=== PATIENT | female | born 1940 | race Caucasian/White ===

== ENCOUNTER → 2018-07-06 11:27 | Outpatient (CLI) | payer MEDICARE, SELFPAY ==
[2018-07-06 12:13] LABS: Hemoglobin A1C% w Est Avg Glu 7.3 % (4.0-6.0)
[2018-07-06 12:15] LABS: BUN Creatinine Ratio 31.4 (6-22); Blood Urea Nitrogen 22 mg/dL (7-17); Carbon Dioxide 26 mmol/L (22-32); Chloride 100 mmol/L (98-107); Estimated Glomerular Filt Rate > 60.0 mL/min (>60); Glucose 178 mg/dL (80-110); HEMOLYSIS < 15 (0-50); Potassium 4.4 mmol/L (3.4-5.1); Sodium 137 mmol/L (137-145)
[2018-07-06 13:02] LABS: Vitamin D 25 Hydroxy (D3) 22.2 ng/mL (30.0-100.0)
[2018-07-06 15:24] LABS: Creatinine Urine Random 119.4 mg/dL
[2018-07-06 15:28] LABS: Microalbumi Creatinin Ratio Ur 50.2 ug/mg CR (<30)
== END ==
PROVIDERS: PCP Student in an Organized Health Care Education/Training Program; Visit Provider Student in an Organized Health Care Education/Training Program
DX: E11.9 Type 2 diabetes mellitus without complications (principal); I10 Essential (primary) hypertension; E55.9 Vitamin D deficiency, unspecified
CPT/HCPCS: 80048; 82043; 82306; 82570; 83036

== ENCOUNTER → 2018-07-29 09:06 | Outpatient (CLI) | payer MEDICARE, SELFPAY ==
[2018-08-02 12:16] LABS: Lipoprotein (a) 172 nmol/L (<75)
== END ==
PROVIDERS: Family Provider Student in an Organized Health Care Education/Training Program; PCP Student in an Organized Health Care Education/Training Program; Visit Provider Internal Medicine
DX: I25.10 Atherosclerotic heart disease of native coronary artery without angina pectoris (principal); I25.119 Atherosclerotic heart disease of native coronary artery with unspecified angina pectoris
CPT/HCPCS: 36415; 83695

== ENCOUNTER → 2018-12-08 09:48 | Outpatient (CLI) | payer MEDICARE, SELFPAY ==
[2018-12-08 11:02] LABS: Hemoglobin A1C% w Est Avg Glu 7.5 % (4.0-6.0)
[2018-12-10 13:35] LABS: Add Manual Diff / Slide Review NO; Basophils Absolute Auto 100 /uL (0-100); Basophils Percent Auto 0.9 % (0-2); Eosinophils Absolute Auto 200 /uL (0-450); Eosinophils Percent Auto 3.4 % (2-4); Hematocrit 42.4 % (36-46); Hemoglobin 13.9 g/dL (12.0-16.0); Lymphocytes Absolute Auto 1700 /uL (1100-4500); Lymphocytes Percent Auto 29.9 % (25-40); Mean Corpuscular HGB Conc 32.9 % (30-36); Mean Corpuscular Hemoglobin 30.7 PG (26-34); Mean Corpuscular Volume 93.3 fL (80-100); Monocytes Absolute Auto 400 /uL (0-900); Monocytes Percent Auto 6.6 % (3-14); Neutrophils Absolute Auto 3400 /uL (1500-7000); Neutrophils Percent Auto 59.2 % (50-75); Platelet Count 256 X10^3/uL (150-400); Red Blood Cell Count 4.54 X10^6/uL (4.0-5.2); Red Cell Distribution Width 13.7 % (11.6-14.8); White Blood Cell Count 5.7 X10^3/uL (4.5-11.0)
[2018-12-10 13:39] LABS: Alanine Aminotransferase 22 IU/L (9-52); Albumin Globulin Ratio 1.4 (1.0-2.8); Alkaline Phosphatase 81 U/L (38-126); Aspartate Aminotransferase 17 IU/L (14-36); BUN Creatinine Ratio 31.4 (6-22); Blood Urea Nitrogen 22 mg/dL (7-17); Calcium 10.9 mg/dL (8.4-10.2); Carbon Dioxide 27 mmol/L (22-32); Chloride 99 mmol/L (98-107); Cholesterol 171 mg/dL (140-199); Estimated Glomerular Filt Rate > 60.0 mL/min (>60); Globulin 2.9 g/dL (1.7-4.1); Glucose 191 mg/dL (80-110); HDL Cholesterol 44 mg/dL (40-60); HEMOLYSIS < 15 (0-50); LDL Cholesterol Calculated 93 mg/dL (<100); Potassium 4.5 mmol/L (3.4-5.1); Sodium 138 mmol/L (137-145); Total Protein 6.9 g/dL (6.3-8.2); Triglycerides 168 mg/dL (35-150)
== END ==
PROVIDERS: Family Provider Student in an Organized Health Care Education/Training Program; PCP Student in an Organized Health Care Education/Training Program; Visit Provider Internal Medicine
DX: E78.5 Hyperlipidemia, unspecified (principal); I25.10 Atherosclerotic heart disease of native coronary artery without angina pectoris; E11.9 Type 2 diabetes mellitus without complications
CPT/HCPCS: 36415; 80053; 80061; 83036; 85025

== ENCOUNTER → 2019-05-20 09:41 | Outpatient (CLI) | payer MEDICARE, SELFPAY ==
[2019-05-20 10:49] LABS: Alanine Aminotransferase 16 IU/L (<35); Albumin 4.3 g/dL (3.5-5.0); Albumin Globulin Ratio 1.4 (1.0-2.8); Alkaline Phosphatase 96 U/L (38-126); Aspartate Aminotransferase 22 IU/L (14-36); Bilirubin Total 0.9 mg/dL (0.2-1.3); Bilirubin Unconjugated 0.8 mg/dL (0.0-1.1); Cholesterol 196 mg/dL (140-199); Globulin 3.1 g/dL (1.7-4.1); HDL Cholesterol 52 mg/dL (40-60); HEMOLYSIS < 15 (0-50); LDL Cholesterol Calculated 118 mg/dL (<100); Total Protein 7.4 g/dL (6.3-8.2); Triglycerides 128 mg/dL (35-150)
== END ==
PROVIDERS: PCP Student in an Organized Health Care Education/Training Program; Visit Provider Internal Medicine
DX: E78.5 Hyperlipidemia, unspecified (principal)
CPT/HCPCS: 36415; 80061; 80076

== ENCOUNTER → 2019-05-20 11:34 | Outpatient (CLI) | payer MEDICARE, SELFPAY ==
[2019-05-20 13:56] LABS: BUN Creatinine Ratio 33.3 (6-22); Blood Urea Nitrogen 20 mg/dL (7-17); Calcium 10.4 mg/dL (8.4-10.2); Carbon Dioxide 23 mmol/L (22-32); Chloride 102 mmol/L (98-107); Estimated Glomerular Filt Rate > 60.0 mL/min (>60); Glucose 128 mg/dL (80-110); HEMOLYSIS < 15 (0-50); Potassium 4.4 mmol/L (3.4-5.1); Sodium 138 mmol/L (137-145)
[2019-05-20 15:27] LABS: Creatinine Urine Random 176.9 mg/dL
[2019-05-20 15:31] LABS: Microalbumi Creatinin Ratio Ur 42.3 ug/mg CR (<30); Microalbumin Urine Random 7.5 mg/dL (0-1.6)
[2019-05-20 15:39] LABS: Vitamin D 25 Hydroxy (D3) 17.2 ng/mL (30.0-100.0)
== END ==
PROVIDERS: PCP Student in an Organized Health Care Education/Training Program; Visit Provider Student in an Organized Health Care Education/Training Program
DX: E11.21 Type 2 diabetes mellitus with diabetic nephropathy (principal); E55.9 Vitamin D deficiency, unspecified; E78.5 Hyperlipidemia, unspecified; I10 Essential (primary) hypertension; Z79.1 Long term (current) use of non-steroidal anti-inflammatories (NSAID)
CPT/HCPCS: 36415; 80048; 80061; 80076; 82043; 82306; 82570; 83036

== ENCOUNTER → 2020-02-01 13:52 | Outpatient (CLI) | payer MEDICARE, SELFPAY ==
[2020-02-01 14:21] LABS: Hemoglobin A1C% w Est Avg Glu 6.6 % (4.0-6.0)
[2020-02-01 15:00] LABS: BUN Creatinine Ratio 27.2 (6-22); Blood Urea Nitrogen 22 mg/dL (7-17); Calcium 10.6 mg/dL (8.4-10.2); Carbon Dioxide 27 mmol/L (22-32); Chloride 104 mmol/L (98-107); Estimated Glomerular Filt Rate > 60.0 mL/min (>60); Glucose 147 mg/dL (80-110); HEMOLYSIS < 15 (0-50); Potassium 4.4 mmol/L (3.4-5.1); Sodium 141 mmol/L (137-145)
[2020-02-01 15:58] LABS: Vitamin D 25 Hydroxy (D3) 38.8 ng/mL (30.0-100.0)
[2020-02-02 07:09] LABS: Parathyroid Hormone Int 74 pg/mL (15-65)
== END ==
PROVIDERS: PCP Student in an Organized Health Care Education/Training Program; Referring Provider Student in an Organized Health Care Education/Training Program; Visit Provider Student in an Organized Health Care Education/Training Program
DX: E11.21 Type 2 diabetes mellitus with diabetic nephropathy (principal); E55.9 Vitamin D deficiency, unspecified; I10 Essential (primary) hypertension
CPT/HCPCS: 36415; 80048; 82306; 83036; 83970

== ENCOUNTER → 2020-06-22 12:50 | Outpatient (CLI) | payer MEDICARE, SELFPAY ==
[2020-06-22 14:17] LABS: BUN Creatinine Ratio 37.1 (6-22); Blood Urea Nitrogen 23 mg/dL (7-17); Estimated Glomerular Filt Rate > 60.0 mL/min (>60)
[2020-06-22 14:33] LABS: Hemoglobin A1C% w Est Avg Glu 7.3 % (4.0-6.0)
[2020-06-23 08:28] LABS: Calcium 7.8 mg/dL (8.7-10.3); Parathyroid Hormone, Intact 68 pg/mL (15-65)
== END ==
PROVIDERS: PCP Student in an Organized Health Care Education/Training Program; Referring Provider Student in an Organized Health Care Education/Training Program; Visit Provider Student in an Organized Health Care Education/Training Program
DX: E11.21 Type 2 diabetes mellitus with diabetic nephropathy (principal); E21.3 Hyperparathyroidism, unspecified; I10 Essential (primary) hypertension
CPT/HCPCS: 36415; 82310; 82565; 83036; 83970; 84520

== ENCOUNTER → 2021-01-04 13:37 | Outpatient (CLI) | payer MEDICARE, SELFPAY ==
[2021-01-04 14:36] LABS: Alanine Aminotransferase 14 IU/L (<35); Albumin 4.3 g/dL (3.5-5.0); Albumin Globulin Ratio 1.4 (1.0-2.8); Alkaline Phosphatase 102 U/L (38-126); Aspartate Aminotransferase 20 IU/L (14-36); Bilirubin Total 1.1 mg/dL (0.2-1.3); Blood Urea Nitrogen 13 mg/dL (7-17); Carbon Dioxide 26 mmol/L (22-32); Chloride 101 mmol/L (98-107); Cholesterol 158 mg/dL (140-199); Estimated Glomerular Filt Rate > 60.0 mL/min (>60); Globulin 3.1 g/dL (1.7-4.1); Glucose 148 mg/dL (80-110); HDL Cholesterol 44 mg/dL (40-60); HEMOLYSIS < 15 (0-50); Hemoglobin A1C% w Est Avg Glu 7.1 % (4.0-6.0); LDL Cholesterol Calculated 88 mg/dL (<100); Potassium 4.1 mmol/L (3.4-5.1); Sodium 136 mmol/L (137-145); Total Protein 7.4 g/dL (6.3-8.2); Triglycerides 128 mg/dL (35-150)
[2021-01-04 15:49] LABS: Creatinine Urine Random 148.1 mg/dL
[2021-01-04 16:11] LABS: Vitamin D 25 Hydroxy (D3) 17.1 ng/mL (30.0-100.0)
[2021-01-04 16:15] LABS: Microalbumi Creatinin Ratio Ur 367.3 ug/mg CR (<30); Microalbumin Urine Random 54.4 mg/dL (0-1.6)
== END ==
PROVIDERS: PCP Student in an Organized Health Care Education/Training Program; Referring Provider Internal Medicine; Visit Provider Internal Medicine
DX: E55.9 Vitamin D deficiency, unspecified (principal); E11.9 Type 2 diabetes mellitus without complications; E78.5 Hyperlipidemia, unspecified; I10 Essential (primary) hypertension
CPT/HCPCS: 36415; 80053; 80061; 82043; 82306; 82570; 83036

== ENCOUNTER → 2021-06-03 10:14 | Outpatient (CLI) | payer MEDICARE, SELFPAY ==
[2021-06-03 10:55] LABS: BUN Creatinine Ratio 23.7 (6-22); Blood Urea Nitrogen 18 mg/dL (7-17); Calcium 9.9 mg/dL (8.4-10.2); Carbon Dioxide 25 mmol/L (22-32); Chloride 103 mmol/L (98-107); Estimated Glomerular Filt Rate > 60.0 mL/min (>60); Glucose 255 mg/dL (80-110); HEMOLYSIS < 15 (0-50); Potassium 4.5 mmol/L (3.4-5.1); Sodium 137 mmol/L (137-145)
== END ==
PROVIDERS: PCP Student in an Organized Health Care Education/Training Program; Referring Provider Internal Medicine; Visit Provider Internal Medicine
DX: R06.00 Dyspnea, unspecified (principal)
CPT/HCPCS: 36415; 80048

== ENCOUNTER → 2021-07-31 09:03 | Outpatient (CLI) | payer MEDICARE, SELFPAY ==
[2021-07-31 10:28] LABS: Add Manual Diff / Slide Review NO; Basophils Absolute Auto 0 /uL (0-100); Basophils Percent Auto 0.5 % (0-2); Eosinophils Absolute Auto 200 /uL (0-450); Eosinophils Percent Auto 2.7 % (2-4); Hematocrit 43.4 % (36-46); Hemoglobin 14.7 g/dL (12.0-16.0); Lymphocytes Absolute Auto 1700 /uL (1100-4500); Lymphocytes Percent Auto 22.7 % (25-40); Mean Corpuscular HGB Conc 33.9 % (30-36); Mean Corpuscular Hemoglobin 31.2 PG (26-34); Mean Corpuscular Volume 91.9 fL (80-100); Monocytes Absolute Auto 600 /uL (0-900); Monocytes Percent Auto 7.9 % (3-14); Neutrophils Absolute Auto 5000 /uL (1500-7000); Neutrophils Percent Auto 66.2 % (50-75); Platelet Count 246 X10^3/uL (150-400); Red Blood Cell Count 4.72 X10^6/uL (4.0-5.2); Red Cell Distribution Width 13.3 % (11.6-14.8); White Blood Cell Count 7.6 X10^3/uL (4.5-11.0)
[2021-07-31 10:33] LABS: Hemoglobin A1C% w Est Avg Glu 7.8 % (4.0-6.0)
[2021-07-31 10:41] LABS: BUN Creatinine Ratio 21.3 (6-22); Blood Urea Nitrogen 17 mg/dL (7-17); Carbon Dioxide 29 mmol/L (22-32); Chloride 99 mmol/L (98-107); Estimated Glomerular Filt Rate > 60.0 mL/min (>60); Glucose 166 mg/dL (80-110); HEMOLYSIS < 15 (0-50); Potassium 4.2 mmol/L (3.4-5.1); Sodium 139 mmol/L (137-145)
[2021-07-31 11:26] LABS: Creatinine Urine Random 145.3 mg/dL
[2021-07-31 11:49] LABS: Microalbumi Creatinin Ratio Ur 271.1 ug/mg CR (<30); Microalbumin Urine Random 39.4 mg/dL (0-1.6)
== END ==
PROVIDERS: PCP Student in an Organized Health Care Education/Training Program; Referring Provider Internal Medicine; Visit Provider Internal Medicine
DX: E11.42 Type 2 diabetes mellitus with diabetic polyneuropathy (principal); E55.9 Vitamin D deficiency, unspecified; I25.118 Atherosclerotic heart disease of native coronary artery with other forms of angina pectoris; E11.69 Type 2 diabetes mellitus with other specified complication; E78.5 Hyperlipidemia, unspecified; I10 Essential (primary) hypertension; E11.21 Type 2 diabetes mellitus with diabetic nephropathy
CPT/HCPCS: 36415; 80048; 82043; 82306; 82570; 83036; 85025

== ENCOUNTER 2021-08-27 13:41 | Emergency (ER) | payer MEDICARE, SELFPAY ==
[2021-08-27] VITALS (17 sets, daily range): BP systolic 110–161; BP diastolic 55–76; PULSE 60–77; RESP 14; TEMP 36.7; O2SAT 93–96; BMI 32.4
--- NOTE | 2021-08-27 14:41 | DI.RAD.S_ITS ---
PROCEDURE: XR KNEE LT 1TO2V INDICATIONS: knee pain TECHNIQUE: 2 views of the knee were acquired. COMPARISON: [facility], CR, XR KNEE ARTHRITIC SERIES RT, 07/17/2017, 10:48. [facility], JONNATHAN, KNEE 1 VIEW BILATERAL, 04/02/2012, 12:41. FINDINGS: Bones: No acute fractures or dislocations. No suspicious bony lesions. Tricompartmental degenerative changes are seen with marginal osteophyte formation, most severe in the anterior compartment. Soft tissues: Moderate joint effusion. No suspicious soft tissue calcifications. IMPRESSION: No acute osseous abnormality. Moderate joint effusion. Tricompartmental osteoarthrosis. If clinical suspicion and/or symptoms persist, additional imaging with repeat plain films, or advanced imaging (e.g. CT, MRI) may be helpful for further assessment. Dictated by: Nael Andersen M.D. on 08/27/2021 at 15:08 Approved by: Nael Andersen M.D. on 08/27/2021 at 15:11
--- NOTE | 2021-08-27 14:41 | DI.RAD.S_ITS ---
PROCEDURE: XR CHEST 1V INDICATIONS: fall TECHNIQUE: One view of the chest was acquired. COMPARISON: [facility], , CHEST 2 VIEW, 07/22/2012, 10:53. FINDINGS: Surgical changes and devices: Sternotomy wires and mediastinal clips are noted. Lungs and pleura: Lungs are clear. No pleural effusions or pneumothorax. Mediastinum: Mediastinal contours appear normal. Heart size is enlarged, stable. Bones and chest wall: No acute displaced rib fracture is seen. No suspicious bony lesions. Overlying soft tissues appear unremarkable. IMPRESSION: No pneumothorax. No acute cardiopulmonary abnormality. Dictated by: Nael Andersen M.D. on 08/27/2021 at 15:04 Approved by: Nael Andersen M.D. on 08/27/2021 at 15:08
--- NOTE | 2021-08-27 14:48 | ED_ITS ---
HPI - Fall <Phoenix Roldan PA-C - Last Filed: 08/27/21 18:38> General Chief Complaint: Fall Stated Complaint: Fall yesterday,no thinners,having left knee pain Time Seen by Provider: 08/27/21 13:59 Source: patient and EMS Mode of arrival: EMS History of Present Illness HPI Narrative: Patient is a 81-year-old female who presents to the ED via EMS. She states that yesterday while walking to the mailbox her left knee gave out and she essentially lowered herself down to her buttocks and kind of fell backwards. She denies any loss of consciousness or any pain in her buttocks or in her head. The only complaint at that time was pain in her left knee. She has a history of arthritis in the left knee has received steroid injections in the past and states that the left knee gave out. Patient was able to crawl back into the house and up into bed and remained in bed throughout the night. About 430 in the morning she got up to go to the bathroom she was able to make it to the toilet with a cane however she was not able to get off of the toilet. She states that she did not have enough energy and was weak and could not hold herself up. As result she got on the floor and crawled to the bed however she was not able to get up onto the bed. Patient remained on the floor from 4:30 a.m. and tilt EMS was notified at 1:00 p.m.. Patient lives with spouse however spouse is not able to address patient's physical needs. No reported fever no reported cough no reported chest pain shortness of breath nausea vomiting or diarrhea. Patient does have substantial cardiac history and had a coronary artery bypass surgery x2 back in 2012. She is on multiple medications and her PCP is associated with [facility]. Related Data Home Medications Medication Instructions Recorded Confirmed ibuprofen 200 mg capsule 200 mg PO QID PRN 07/06/18 08/19/21 magnesium oxide 400 mg PO BID cap 07/13/18 08/19/21 amlodipine 10 mg tablet 10 mg PO DAILY 01/09/21 08/19/21 furosemide 40 mg tablet 40 mg PO DAILY 05/21/21 08/19/21 aspirin 81 mg tablet,delayed 162 mg PO DAILY tab 08/19/21 08/19/21 release (Adult Aspirin Regimen) isosorbide mononitrate 30 mg 30 mg PO DAILY 08/19/21 08/19/21 tablet,extended release 24 hr metoprolol succinate 200 mg 200 mg PO DAILY 08/19/21 08/19/21 tablet,extended release 24 hr pantoprazole 40 mg tablet,delayed 40 mg PO DAILY 08/19/21 08/19/21 release sacubitril 49 mg-valsartan 51 mg 1 tab PO BID 08/19/21 08/19/21 tablet (Entresto) Previous Rx's Medication Instructions Recorded [accu chek inge strip] #1 ea 05/20/19 cholecalciferol (vitamin D3) 125 125 mcg PO DAILY #90 cap 07/31/21 mcg (5,000 unit) capsule empagliflozin 25 mg tablet 25 mg PO DAILY #90 tab 07/31/21 atorvastatin 80 mg tablet 80 mg PO DAILY #90 tab 08/19/21 clobetasol 0.05 % topical cream 1 applic TOPICAL BID PRN #15 gram 08/19/21 insulin glargine 100 unit/mL (3 20 unit (0.2 mL) SUBCUT BEDTIME #6 08/19/21 mL) subcutaneous pen (Lantus ml Solostar U-100 Insulin) metformin 1,000 mg tablet 1,000 mg PO BIDCC #180 tab 08/19/21 methocarbamol 500 mg tablet 500 mg PO Q8H 7 Days #21 tab 08/27/21 Allergies Allergy/AdvReac Type Severity Reaction Status Date / Time latanoprost [From XALATAN] Allergy Intermediate made eyes Verified 08/27/21 13:54 itch spironolactone Allergy Mild Vomiting Verified 08/27/21 13:54 hydrochlorothiazide AdvReac Intermediate Hypercalcem Verified 08/27/21 13:54 ia timolol [TIMOLOL] AdvReac Mild REDNESS Verified 08/27/21 13:54 AROUND EYES Review of Systems <Phoenix Roldan PA-C - Last Filed: 08/27/21 18:38> Review of Systems ROS Unobtainable: All systems reviewed & are unremarkable except as noted in HPI and below Constitutional Constitutional: Denies chills, Denies fatigue, Denies fever(s), Denies frequent falls, Denies lethargy and Denies weakness Eyes Eyes: Denies change in vision, Denies eye discharge, Denies irritation and Denies loss of vision ENT Ears, Nose, Mouth, and Throat: Denies change in voice, Denies dizziness, Denies neck pain, Denies sore throat and Denies throat swelling Cardiovascular Cardiovascular: Denies chest pain, Denies irregular heart rhythm, Denies lightheadedness, Denies palpitations, Denies dyspnea, Denies dyspnea on exertion and Denies orthopnea Respiratory Respiratory: Denies cough, Denies dyspnea, Denies dyspnea on exertion and Denies wheezing Gastrointestinal Gastrointestinal: Denies abdominal pain, Denies change in bowel habits, Denies diarrhea, Denies nausea and Denies vomiting Genitourinary Genitourinary: Denies hematuria, Denies flank pain, Denies urinary incontinence and Denies urinary urgency Musculoskeletal Musculoskeletal: Reports arthralgias, Denies back pain, Reports arthralgias, Reports joint swelling, Denies muscle weakness, Denies neck pain, Denies numbness and Denies tingling Integumentary/Breasts Skin/Breast: Denies pruritus, Denies erythema, Denies rash and Denies wounds Neurologic Neurologic: Denies behavioral changes, Denies confusion, Denies dizziness, Denies frequent falls, Denies loss of vision, Denies numbness, Denies tingling and Denies weakness Psychiatric Psychiatric: Denies anxiety, Denies behavioral changes, Denies confusion, Denies depression, Denies homicidal ideation and Denies suicidal ideation Endocrine Endocrine: Denies fatigue, Denies flushing and Denies palpitations Hematologic/Lymphatic Hematologic/Lymphatic: Denies easy bruising Allergic/Immunologic Allergic/Immunologic: Denies urticaria, Denies throat swelling and Denies wheezing Patient History <Phoenix Roldan PA-C - Last Filed: 08/27/21 18:38> Medical History CAD (coronary artery disease) (06/2012) Cataract Diabetes type 2, controlled (03/19/11) Essential hypertension (03/19/11) Glaucoma Hyperlipidemia associated with type 2 diabetes mellitus HI (myocardial infarction) Mitral regurgitation Peripheral vascular disease Psoriasis Shingles (09/2008) Surgical History History of mitral valve repair (06/2012) Status post coronary artery bypass graft (06/2012) Status post hysterectomy (1992) Family History Other Heart disease Social History Smoking Status: Former smoker alcohol intake: current (Occasional) substance use type: does not use Smoking Status: Former smoker alcohol intake frequency: 0-2 drinks per day Substance Use Type: does not use Exam <Phoenix Roldan PA-C - Last Filed: 08/27/21 18:38> Initial Vital Signs Initial Vital Signs: Vital Signs Pulse Rate 71 08/27/21 13:45 Pulse Oximetry 95 08/27/21 13:45 Const General: cooperative, healthy appearing, comfortable and well developed Nutritional Appearance: average body habitus Orientation: Orientation [facility] Head: normal to inspection, normocephalic and atraumatic Ears: hearing grossly normal bilaterally and external ears normal Nose: external nose normal and nares normal Face and sinus: normal facial exam and sinuses nontender Mouth: oral mucosae normal Teeth and gingiva: dentition normal Eyes General: Yes appearance normal, both eyes and all related structures Pupils: PERRL Resp Effort & Inspection: normal respiratory effort and able to speak in complete sentences Auscultation: clear to auscultation bilaterally Percussion: percussion normal Cardio Palpation: normal PMI Rate: regular rate Rhythm: regular rhythm Heart Sounds: S1 normal and S2 normal GI Inspection: normal to inspection Palpation: soft and no hepatosplenomegaly Percussion: normal to percussion Auscultation: normal bowel sounds Skin General: no rashes or lesions noted Neuro General: patient alert, patient awake, patient oriented x3, moves all extremities and CN's II-XI intact bilaterally <Mayuri Guerrier DO - Last Filed: 08/28/21 03:25> Initial Vital Signs Initial Vital Signs: Vital Signs Pulse Rate 71 08/27/21 13:45 Pulse Oximetry 95 08/27/21 13:45 Course <Phoenix Roldan PA-C - Last Filed: 08/27/21 18:38> Orders Ordered: Discontinued Medications Acetaminophen (Acetaminophen 325 Mg Tablet) 975 mg PO NOW ONE Stop: 08/27/21 17:11 Last Admin: 08/27/21 17:33 Dose: 975 mg Documented by: BASHIR Methocarbamol (Methocarbamol 500 Mg Tablet) 500 mg PO NOW ONE Stop: 08/27/21 17:11 Last Admin: 08/27/21 17:34 Dose: 500 mg Documented by: BASHIR Consultations Consultation #1: Spoke with the hospitalist on duty today regarding admission. He recommended a PT consult to evaluate patient's abilities. Vital Signs Vital signs: Vital Signs - 8 hr 08/27/21 13:45 08/27/21 13:46 08/27/21 13:54 Temperature 98.1 F Pulse Rate 71 71 68 Respiratory Rate 14 Blood Pressure 160/66 H 160/66 H Pulse Oximetry 95 95 96 08/27/21 14:00 08/27/21 14:30 08/27/21 14:58 Temperature Pulse Rate 68 72 64 Respiratory Rate Blood Pressure 152/67 H 161/74 H 110/55 L Pulse Oximetry 95 96 95 08/27/21 15:00 08/27/21 15:30 08/27/21 16:00 Temperature Pulse Rate 65 60 62 Respiratory Rate Blood Pressure 116/56 L 118/59 L 123/58 L Pulse Oximetry 95 94 95 08/27/21 16:30 08/27/21 16:31 08/27/21 17:00 Temperature Pulse Rate 68 64 63 Respiratory Rate Blood Pressure 141/71 H 159/76 H Pulse Oximetry 96 95 95 08/27/21 17:30 08/27/21 17:31 08/27/21 18:00 Temperature Pulse Rate 63 65 65 Respiratory Rate Blood Pressure 113/55 L 117/58 L Pulse Oximetry 94 94 93 08/27/21 18:19 Temperature Pulse Rate 77 Respiratory Rate Blood Pressure 131/61 Pulse Oximetry 95 <Mayuri Guerrier DO - Last Filed: 08/28/21 03:25> Orders Ordered: Discontinued Medications Acetaminophen (Acetaminophen 325 Mg Tablet) 975 mg PO NOW ONE Stop: 08/27/21 17:11 Last Admin: 08/27/21 17:33 Dose: 975 mg Documented by: BASHIR Methocarbamol (Methocarbamol 500 Mg Tablet) 500 mg PO NOW ONE Stop: 08/27/21 17:11 Last Admin: 08/27/21 17:34 Dose: 500 mg Documented by: BASHIR Vital Signs Vital signs: Vital Signs - 8 hr 08/27/21 13:45 08/27/21 13:46 08/27/21 13:54 Temperature 98.1 F Pulse Rate 71 71 68 Respiratory Rate 14 Blood Pressure 160/66 H 160/66 H Pulse Oximetry 95 95 96 08/27/21 14:00 08/27/21 14:30 08/27/21 14:58 Temperature Pulse Rate 68 72 64 Respiratory Rate Blood Pressure 152/67 H 161/74 H 110/55 L Pulse Oximetry 95 96 95 08/27/21 15:00 08/27/21 15:30 08/27/21 16:00 Temperature Pulse Rate 65 60 62 Respiratory Rate Blood Pressure 116/56 L 118/59 L 123/58 L Pulse Oximetry 95 94 95 08/27/21 16:30 08/27/21 16:31 08/27/21 17:00 Temperature Pulse Rate 68 64 63 Respiratory Rate Blood Pressure 141/71 H 159/76 H Pulse Oximetry 96 95 95 08/27/21 17:30 08/27/21 17:31 08/27/21 18:00 Temperature Pulse Rate 63 65 65 Respiratory Rate Blood Pressure 113/55 L 117/58 L Pulse Oximetry 94 94 93 08/27/21 18:19 Temperature Pulse Rate 77 Respiratory Rate Blood Pressure 131/61 Pulse Oximetry 95 MDM - Fall <Phoenix Roldan PA-C - Last Filed: 08/27/21 18:38> Differential Diagnosis Differential diagnosis: Likely other Lab Data Result diagrams: 08/27/21 14:55 08/27/21 14:55 Labs: Lab Results 08/27/21 08/27/21 08/27/21 Range/Units 14:55 14:55 14:55 WBC 7.7 (4.5-11.0) X10^3/uL RBC 4.68 (4.0-5.2) X10^6/uL Hgb 14.4 (12.0-16.0) g/dL Hct 43.3 (36-46) % MCV 92.4 (80-100) fL MCH 30.8 (26-34) PG MCHC 33.3 (30-36) % RDW 13.9 (11.6-14.8) % Plt Count 229 (150-400) X10^3/uL Neut % (Auto) 77.3 H (50-75) % Lymph % (Auto) 12.3 L (25-40) % [place] % (Auto) 9.2 (3-14) % Eos % (Auto) 0.9 L (2-4) % Baso % (Auto) 0.3 (0-2) % Neut # (Auto) 6000 (0488-9762) /uL Lymph # (Auto) 1000 L (2600-0547) /uL [place] # (Auto) 700 (0-900) /uL Eos # (Auto) 100 (0-450) /uL Baso # (Auto) 0 (0-100) /uL Sodium 139 (137-145) mmol/L Potassium 4.2 (3.4-5.1) mmol/L Chloride 105 (98-107) mmol/L Carbon Dioxide 28 (22-32) mmol/L BUN 21 H (7-17) mg/dL Creatinine 0.80 (0.52-1.04) mg/dL Estimated GFR > 60 (>60) mL/min BUN/Creatinine Ratio 26.3 H (6-22) Glucose 167 H (80-110) mg/dL Calcium 9.6 (8.4-10.2) mg/dL Total Bilirubin 1.3 (0.2-1.3) mg/dL AST 23 (14-36) IU/L ALT 15 (<35) IU/L Alkaline Phosphatase 89 (38-126) U/L Total Creatine Kinase 77 (30-135) U/L CK-MB (CK-2) TNP CK-MB (CK-2) Rel Index TNP Troponin I < 0.012 (0.01-0.034) ng/mL NT-Pro-B Natriuret Pep 1620 H (<450) pg/mL Total Protein 6.8 (6.3-8.2) g/dL Albumin 4.0 (3.5-5.0) g/dL Globulin 2.8 (1.7-4.1) g/dL Albumin/Globulin Ratio 1.4 (1.0-2.8) TSH 2.28 (0.47-4.68) uIU/mL Point of Care Testing Glucose POC 160 Urine Dip Bedside Urine Glucose 1000 mg/dl Bedside Urine Bilirubin - Negative Bedside Urine Ketone - Negative Urine Specific Champion 1.020 Bedside Urine Occult Blood - Negative Bedside Urine pH 6.0 Bedside Urine Protein - Negative Bedside Urine Urobilinogen - Negative Bedside Urine Nitrite - Negative Bedside Urine Leukocytes - Negative Esterase Imaging Data Chest x-ray: Radiologist's Impression: [address] [id number] ReportSigned Patient: Faina Pearce AMR#: [id number]: 1940cct:[id number]/Sex: 81 / FDate of Service: 08/27/21Loc: EDAccession Number: [id number]? ? Procedure: XR chest 1V Ordering Provider: Phoenix Roldan P.A-C PROCEDURE:? XR CHEST 1V ? INDICATIONS:? fall ? TECHNIQUE:? One view of the chest was acquired.? ? COMPARISON:? [facility] , CHEST 2 VIEW, 07/22/2012, 10:53. ? FINDINGS:? ? Surgical changes and devices:? Sternotomy wires and mediastinal clips are noted. ? Lungs and pleura:? Lungs are clear.? No pleural effusions or pneumothorax.? ? Mediastinum:? Mediastinal contours appear normal.? Heart size is enlarged, stable.? ? Bones and chest wall:? No acute displaced rib fracture is seen.? No suspicious bony lesions.? Overlying soft tissues appear unremarkable.? ? IMPRESSION:? No pneumothorax.? No acute cardiopulmonary abnormality.? ? Dictated by: Nael Andersen M.D. on 08/27/2021 at 15:04? ?? Approved by: Nael Andersen M.D. on 08/27/2021 at 15:08?? Extremity x-ray #1: Radiologist's Impression: [address] [id number] XRay Report Signed Patient: Faina Pearce MR#: [id number] : 1940 Acct:[id number] Age/Sex: 81 / F Date of Service: 08/27/21 Loc: ED Accession Number: [id number] ?? Procedure: XR knee LT 1to2V Ordering Provider: Phoenix Roldan P.A-C PROCEDURE:? XR KNEE LT 1TO2V ? INDICATIONS:? knee pain ? TECHNIQUE:? 2 views of the knee were acquired.? ? COMPARISON:? [facility] JONNATHAN Hathaway, XR KNEE ARTHRITIC SERIES RT, 07/17/2017, 10:48.? [facility], CR, KNEE 1 VIEW BILATERAL, 04/02/2012, 12:41. ? FINDINGS:? ? Bones:? No acute fractures or dislocations.? No suspicious bony lesions.? Tricompartmental degenerative changes are seen with marginal osteophyte formation, most severe in the anterior compartment. ? Soft tissues:? Moderate joint effusion.? No suspicious soft tissue calcifications.? ? ? IMPRESSION:? No acute osseous abnormality.? Moderate joint effusion.? Trico mpartmental osteoarthrosis.? If clinical suspicion and/or symptoms persist, additional imaging with repeat plain films, or advanced imaging (e.g. CT, MRI) may be helpful for further assessment. ? ? Dictated by: Nael Andersen M.D. on 08/27/2021 at 15:08 ? ? Approved by: Nael Andersen M.D. on 08/27/2021 at 15:11?? MDM Narrative Medical decision making narrative: Patient was evaluated today for weakness and falls. Patient was brought in by EMS because she was unable to get up from the floor. She laid on the floor for approximately 10 hours prior to calling EMS. She reports the day prior where she was walking out to get the mail and her left knee gave out and she had to crawl into the house. She denies any pain or discomfort however she is complaining of increased weakness. Patient had x-rays which did not show any evidence of any fractures blood work did show elevation in her BNP. I spoke with the hospitalist on duty he evaluated the patient himself and determined that the patient was okay to be sent home. At his recommendation I will discharge the patient home and I advised her to follow up with her regular doctor. She was agreeable family was agreeable and patient was discharged home. <Mayuri Guerrier, DO - Last Filed: 08/28/21 03:25> Lab Data Labs: Lab Results 08/27/21 08/27/21 08/27/21 Range/Units 14:55 14:55 14:55 WBC 7.7 (4.5-11.0) X10^3/uL RBC 4.68 (4.0-5.2) X10^6/uL Hgb 14.4 (12.0-16.0) g/dL Hct 43.3 (36-46) % MCV 92.4 (80-100) fL MCH 30.8 (26-34) PG MCHC 33.3 (30-36) % RDW 13.9 (11.6-14.8) % Plt Count 229 (150-400) X10^3/uL Neut % (Auto) 77.3 H (50-75) % Lymph % (Auto) 12.3 L (25-40) % [place] % (Auto) 9.2 (3-14) % Eos % (Auto) 0.9 L (2-4) % Baso % (Auto) 0.3 (0-2) % Neut # (Auto) 6000 (5231-3207) /uL Lymph # (Auto) 1000 L (8826-2681) /uL [place] # (Auto) 700 (0-900) /uL Eos # (Auto) 100 (0-450) /uL Baso # (Auto) 0 (0-100) /uL Sodium 139 (137-145) mmol/L Potassium 4.2 (3.4-5.1) mmol/L Chloride 105 (98-107) mmol/L Carbon Dioxide 28 (22-32) mmol/L BUN 21 H (7-17) mg/dL Creatinine 0.80 (0.52-1.04) mg/dL Estimated GFR > 60 (>60) mL/min BUN/Creatinine Ratio 26.3 H (6-22) Glucose 167 H (80-110) mg/dL Calcium 9.6 (8.4-10.2) mg/dL Total Bilirubin 1.3 (0.2-1.3) mg/dL AST 23 (14-36) IU/L ALT 15 (<35) IU/L Alkaline Phosphatase 89 (38-126) U/L Total Creatine Kinase 77 (30-135) U/L CK-MB (CK-2) TNP CK-MB (CK-2) Rel Index TNP Troponin I < 0.012 (0.01-0.034) ng/mL NT-Pro-B Natriuret Pep 1620 H (<450) pg/mL Total Protein 6.8 (6.3-8.2) g/dL Albumin 4.0 (3.5-5.0) g/dL Globulin 2.8 (1.7-4.1) g/dL Albumin/Globulin Ratio 1.4 (1.0-2.8) TSH 2.28 (0.47-4.68) uIU/mL Point of Care Testing Glucose POC 160 Urine Dip Bedside Urine Glucose 1000 mg/dl Bedside Urine Bilirubin - Negative Bedside Urine Ketone - Negative Urine Specific [place] 1.020 Bedside Urine Occult Blood - Negative Bedside Urine pH 6.0 Bedside Urine Protein - Negative Bedside Urine Urobilinogen - Negative Bedside Urine Nitrite - Negative Bedside Urine Leukocytes - Negative Esterase Discharge Plan Departure Patient Disposition: Home Clinical Impression: Fall, Weakness Instructions: How to Prevent Falls Activity Restrictions/Additional Instructions: You were seen today for your fall and weakness. If you have worsening symptoms you can return to the ED or follow-up with her PCP. Be sure to stay hydrated and be cautious with walking with regards to the left knee as it is osteoarthritic and can be more unstable. Should follow-up with an library media specialist to have your left knee evaluated and he should always use a cane or a walker when ambulating. Be sure to take extra time when changing positions. Thank you for the opportunity to care for you today. Prescriptions: New methocarbamol 500 mg tablet 500 mg PO Q8H 7 Days Qty: 21 0RF Continued magnesium oxide 400 mg capsule 400 mg PO BID 0RF amlodipine 10 mg tablet 10 mg PO DAILY 0RF furosemide 40 mg tablet 40 mg PO DAILY 0RF empagliflozin 25 mg tablet 25 mg PO DAILY Qty: 90 0RF cholecalciferol (vitamin D3) 125 mcg (5,000 unit) capsule 125 mcg PO DAILY Qty: 90 0RF (DME) [accu chek inge strip] See Rx Instructions .Route .MEDSUPPLY Qty: 1 5RF Dose Instruction: Check blood sugar DAILY; Rx Instructions: Check blood sugar DAILY; metoprolol succinate 200 mg tablet extended release 24 hr 200 mg PO DAILY 0RF Entresto 49-51 mg tablet 1 tab PO BID 0RF isosorbide mononitrate 30 mg tablet extended release 24 hr 30 mg PO DAILY 0RF pantoprazole 40 mg tablet,delayed release (DR/EC) 40 mg PO DAILY 0RF atorvastatin 80 mg tablet 80 mg PO DAILY Qty: 90 3RF clobetasol 0.05 % cream 1 applic Topical BID PRN (Reason: rash on ears) Qty: 15 5RF metformin 1,000 mg tablet 1,000 mg PO BIDCC Qty: 180 1RF Lantus Solostar U-100 Insulin 100 unit/mL (3 mL) insulin pen 20 unit SUBCUT BEDTIME Qty: 6 5RF ibuprofen 200 mg capsule 200 mg PO QID PRN0RF aspirin [Adult Aspirin Regimen] 81 mg tablet,delayed release (DR/EC) 162 mg PO DAILY 0RF Referrals: Jeff Jernigan MD [Primary Care Provider] - <Mayuri Guerrier DO - Last Filed: 08/28/21 03:25> Cosign ED Attending Cosdominicature Attestation: I was immediately available in the department for consultation. Documentation has been reviewed.
[2021-08-27 15:10] LABS: Add Manual Diff / Slide Review NO; Basophils Absolute Auto 0 /uL (0-100); Basophils Percent Auto 0.3 % (0-2); Eosinophils Absolute Auto 100 /uL (0-450); Eosinophils Percent Auto 0.9 % (2-4); Hematocrit 43.3 % (36-46); Hemoglobin 14.4 g/dL (12.0-16.0); Lymphocytes Absolute Auto 1000 /uL (1100-4500); Lymphocytes Percent Auto 12.3 % (25-40); Mean Corpuscular HGB Conc 33.3 % (30-36); Mean Corpuscular Hemoglobin 30.8 PG (26-34); Mean Corpuscular Volume 92.4 fL (80-100); Monocytes Absolute Auto 700 /uL (0-900); Monocytes Percent Auto 9.2 % (3-14); Neutrophils Absolute Auto 6000 /uL (1500-7000); Neutrophils Percent Auto 77.3 % (50-75); Platelet Count 229 X10^3/uL (150-400); Red Blood Cell Count 4.68 X10^6/uL (4.0-5.2); Red Cell Distribution Width 13.9 % (11.6-14.8); White Blood Cell Count 7.7 X10^3/uL (4.5-11.0)
[2021-08-27 15:20] LABS: Aspartate Aminotransferase 23 IU/L (14-36); Blood Urea Nitrogen 21 mg/dL (7-17); HEMOLYSIS < 15 (0-50); Potassium 4.2 mmol/L (3.4-5.1)
[2021-08-27 15:28] LABS: Alanine Aminotransferase 15 IU/L (<35); Albumin Globulin Ratio 1.4 (1.0-2.8); Alkaline Phosphatase 89 U/L (38-126); BUN Creatinine Ratio 26.3 (6-22); Bilirubin Total 1.3 mg/dL (0.2-1.3); Calcium 9.6 mg/dL (8.4-10.2); Carbon Dioxide 28 mmol/L (22-32); Chloride 105 mmol/L (98-107); Creatine Kinase 77 U/L (30-135); Estimated Glomerular Filt Rate > 60 mL/min (>60); Globulin 2.8 g/dL (1.7-4.1); Glucose 167 mg/dL (80-110); Sodium 139 mmol/L (137-145); Total Protein 6.8 g/dL (6.3-8.2)
[2021-08-27 15:41] LABS: NT-proBNP (BNP-Adult 18+) 1620 pg/mL (<450); Troponin I < 0.012 ng/mL (0.01-0.034)
[2021-08-27 16:06] LABS: Thyroid Stimulating Hormone 2.28 uIU/mL (0.47-4.68)
--- NOTE | 2021-08-27 16:49 | PT-IP ANOTE ---
reviewed EMR. checked with ED nurse and stated that pt will be admitted to the acute floor. also stated that they tried to ambulate pt but pt unable to stand up. Will await PT eval order once pt is up on acute floor.
[2021-08-27] MEDS: ACETAMINOPHEN 325 MG TABLET 975 MG PO (17:33)
[2021-08-27] MEDS: methocarbamoL 500 MG TABLET PO (17:34)
--- NOTE | 2021-08-27 18:24 | PC.NURSE ---
Physician at bedside. Patient up and walking with cane. Required some assistance to get out of bed initially, but able to sit up and stand independently. Daughter at bedside and willing to stay with patient to ensure she can get around safely. Discussed use of walker and toilet risers. Patient wishing to be discharged.
--- NOTE | 2021-08-27 18:59 | P.CONS_ITS ---
History of Present Illness Consult details Date Patient Seen: 08/27/21 Time Patient Seen: 05:15 Chief complaint: Fall yesterday,no thinners,having left knee pain Narrative: This is a 81 year female with a past medical history of coronary artery disease status post CABG in 2012, ischemic cardiomyopathy with an EF of 35-40%, severe MR status post mitral valve repair in 2013, diabetes, hypertension, cognitive impairment, and GERD who was brought to the emergency room after a fall at home yesterday. The patient states that she was walking to her mailbox yesterday when her left leg suddenly gave out, and she fell backwards onto her buttock and actually hit her head. She initially did not feel any pain but had difficulty getting up due to weakness and actually crawled upper driveway and back in to a 1st floor bed. She was able to get up this morning according to the daughter after some pain medications but was unable to get off the toilet due to pain whi ch had now started in her left knee. She denied any dizziness prior to her fall, chest pain, worsened shortness of breath compared to baseline, cough, fever, chills, abdominal pain, nausea, vomiting, dysuria, or urinary frequency. She has been looking into cardiac rehab and working toward that. She previously would get short of breath with only a few steps which she has actually been able to double her capacity over the last few months but still get short of breath when walking to her mailbox. She feels chronically weak but no worse than usual currently. The emergency room provider contacted me for possible admission given elevated proBNP. I have no prior records to review but given the patient's current lack of acute symptoms and chronicity I felt this more likely to be a musculoskeletal cause of her current weakness. Imaging was performed in the emergency room which did not reveal any acute injuries. Physical therapy was unavailable for a consultation due to the late hour, but I ordered the patient for some Tylenol and a muscle relaxant after physical exam revealed some tight musculature around her knee. Her daughter was able to bring her usual cane and the patient was a ble to stand up without significant pain and able to ambulate with her walker in her room. Had a discussion with the patient and her daughter and discussed risks and benefits of admission versus discharge home and the patient elected for discharge home. Meds Home Medications and Allergies Home Medications Medication Instructions Recorded Confirmed Type ibuprofen 200 mg capsule 200 mg PO QID PRN 07/06/18 08/19/21 History magnesium oxide 400 mg PO BID cap 07/13/18 08/19/21 History [accu chek inge strip] #1 ea 05/20/19 08/19/21 Rx amlodipine 10 mg tablet 10 mg PO DAILY 01/09/21 08/19/21 History furosemide 40 mg tablet 40 mg PO DAILY 05/21/21 08/19/21 History cholecalciferol (vitamin D3) 125 125 mcg PO DAILY #90 cap 07/31/21 08/19/21 Rx mcg (5,000 unit) capsule empagliflozin 25 mg tablet 25 mg PO DAILY #90 tab 07/31/21 08/19/21 Rx aspirin 81 mg tablet,delayed 162 mg PO DAILY tab 08/19/21 08/19/21 History release (Adult Aspirin Regimen) atorvastatin 80 mg tablet 80 mg PO DAILY #90 tab 08/19/21 08/19/21 Rx clobetasol 0.05 % topical cream 1 applic TOPICAL BID PRN #15 gram 08/19/21 08/19/21 Rx insulin glargine 100 unit/mL (3 20 unit (0.2 mL) SUBCUT BEDTIME #6 08/19/21 08/19/21 Rx mL) subcutaneous pen (Lantus ml Solostar U-100 Insulin) isosorbide mononitrate 30 mg 30 mg PO DAILY 08/19/21 08/19/21 History tablet,extended release 24 hr metformin 1,000 mg tablet 1,000 mg PO BIDCC #180 tab 08/19/21 08/19/21 Rx metoprolol succinate 200 mg 200 mg PO DAILY 08/19/21 08/19/21 History tablet,extended release 24 hr pantoprazole 40 mg tablet,delayed 40 mg PO DAILY 08/19/21 08/19/21 History release sacubitril 49 mg-valsartan 51 mg 1 tab PO BID 08/19/21 08/19/21 History tablet (Entresto) methocarbamol 500 mg tablet 500 mg PO Q8H 7 Days #21 tab 08/27/21 Rx Allergies Allergy/AdvReac Type Severity Reaction Status Date / Time latanoprost [From XALATAN] Allergy Intermediate made eyes Verified 08/27/21 13:54 itch spironolactone Allergy Mild Vomiting Verified 08/27/21 13:54 hydrochlorothiazide AdvReac Intermediate Hypercalcem Verified 08/27/21 13:54 ia timolol [TIMOLOL] AdvReac Mild REDNESS Verified 08/27/21 13:54 AROUND EYES Review of Systems Review of Systems Narrative: All other systems reviewed with the patient and are negative unless otherwise stated. Exam Vital Signs (past 8 hours): - 08/27/21 13:45 08/27/21 13:46 08/27/21 13:54 Temperature 98.1 F Pulse Rate 71 71 68 Respiratory Rate 14 Blood Pressure 160/66 H 160/66 H Pulse Oximetry 95 95 96 08/27/21 14:00 08/27/21 14:30 08/27/21 14:58 Temperature Pulse Rate 68 72 64 Respiratory Rate Blood Pressure 152/67 H 161/74 H 110/55 L Pulse Oximetry 95 96 95 08/27/21 15:00 08/27/21 15:30 08/27/21 16:00 Temperature Pulse Rate 65 60 62 Respiratory Rate Blood Pressure 116/56 L 118/59 L 123/58 L Pulse Oximetry 95 94 95 08/27/21 16:30 08/27/21 16:31 08/27/21 17:00 Temperature Pulse Rate 68 64 63 Respiratory Rate Blood Pressure 141/71 H 159/76 H Pulse Oximetry 96 95 95 08/27/21 17:30 08/27/21 17:31 08/27/21 18:00 Temperature Pulse Rate 63 65 65 Respiratory Rate Blood Pressure 113/55 L 117/58 L Pulse Oximetry 94 94 93 08/27/21 18:19 Temperature Pulse Rate 77 Respiratory Rate Blood Pressure 131/61 Pulse Oximetry 95 Oxygen Delivery Method Room Air Narrative Exam Narrative: General:? Patient is well developed and well nourished, in no distress at this time. HEENT:? Normocephalic, atraumatic, extraocular muscles intact, oral pharynx is clear and mucous membranes are moist. Neck: supple and symmetric, trachea is midline, no cervical adenopathy. Negative for JVD Chest:? Normal AP diameter and contour without kyphoscoliosis, no tachypnea, equal chest rise bilaterally. Lungs:? CTA b/l no wheezing rhonchi or rales. Cardio:?RRR no m/r/g. Abdomen: S NT ND. Musculoskeletal:? Muscle strength and tone are equal within normal limits, no deformity. No L knee effusion, tight muscles both superior and anterior to the knee without significant tenderness. Extremities: No edema or joint effusions. No cyanosis or clubbing. Skin:? Pale,? Warm to touch,dry and intact without rashes, ulcerations or petechiae.? Neuro:? Alert and orientated x3,? sensation to touch intact in all extremities, no gross deficits noted of cranial nerves. Psych:? Patient has a well-kept appearance, appropriate affect, mental status attitude thought context and judgment are appropriate for age. Objective ECG Impression: NSR with TWI in lateral leads without reciprocal changes as interpreted by me. These are noted on prior notes from cardiology as an outpatient as unchanged. No other tracing is available for review since 2012. Labs Result Diagrams: 08/27/21 14:55 08/27/21 14:55 Labs: Laboratory Results - last 24 hr 08/27/21 08/27/21 08/27/21 14:55 14:55 14:55 WBC 7.7 RBC 4.68 Hgb 14.4 Hct 43.3 MCV 92.4 MCH 30.8 MCHC 33.3 RDW 13.9 Plt Count 229 Neut % (Auto) 77.3 H Lymph % (Auto) 12.3 L [place] % (Auto) 9.2 Eos % (Auto) 0.9 L Baso % (Auto) 0.3 Neut # (Auto) 6000 Lymph # (Auto) 1000 L [place] # (Auto) 700 Eos # (Auto) 100 Baso # (Auto) 0 Sodium 139 Potassium 4.2 Chloride 105 Carbon Dioxide 28 BUN 21 H Creatinine 0.80 Estimated GFR > 60 BUN/Creatinine Ratio 26.3 H Glucose 167 H Calcium 9.6 Total Bilirubin 1.3 AST 23 ALT 15 Alkaline Phosphatase 89 Total Creatine Kinase 77 CK-MB (CK-2) TNP CK-MB (CK-2) Rel Index TNP Troponin I < 0.012 NT-Pro-B Natriuret Pep 1620 H Total Protein 6.8 Albumin 4.0 Globulin 2.8 Albumin/Globulin Ratio 1.4 TSH 2.28 PFSH Medical History CAD (coronary artery disease) (06/2012) Cataract Diabetes type 2, controlled (03/19/11) Essential hypertension (03/19/11) Glaucoma Hyperlipidemia associated with type 2 diabetes mellitus AL (myocardial infarction) Mitral regurgitation Peripheral vascular disease Psoriasis Shingles (09/2008) Surgical History History of mitral valve repair (06/2012) Status post coronary artery bypass graft (06/2012) Status post hysterectomy (1992) Family History Other Heart disease Tobacco & Substance Use Smoking Status: Former smoker alcohol intake: current (Occasional) substance use type: does not use Assessment & Plan Assessment & Plan narrative: This is a 81 year female with a past medical history of coronary artery disease status post CABG in 2012, ischemic cardiomyopathy with an EF of 35-40%, severe MR status post mitral valve repair in 2012, diabetes, hypertension, cognitive impairment, and GERD who presented to the ER with difficulty walking after she reported her left leg gave out. She had difficulty ambulating after and complained of L knee pain today. She denied chest pain, dizziness, or palpitations. She has chronic shortness of breath which is unchanged today. The emergency room provider contacted me for possible admission given elevated proBNP. I have no prior records but this appears chronic. Her EKG is unchanged based on extensive review of notes from her button tufter. Troponin was negative and she denies chest pain. She is trying to get into cardiac rehab. I ordered the patient tylenol and robaxin given probable musculoskeletal pain. After she was able to ambulate and stand from a rolling chair with her walker that she uses at home. She felt comfortable going home from the ER, she was counseled on return precuations. Her symptoms may be due to transient hypotension in the setting of entresto which was recently started. I recommended taking BP a few times a day to monitor this at home over the next few days. She was prescribed a muscle relaxant. 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 Diagnoses: Left knee pain, improved. Ground level fall chronic systolic heart failure severe MR s/p mitral valve replacement CAD DM2 HTN chronic cognitive impairment I have utilized all available immediate resources to obtain, update, or review the patient's current medications. Code: Full, surrogate decision maker she states would be her and daughter. Time Spent With Patient Critical Care time: I spent a total of [] minutes of critical care time on this patient's care today; this time is exclusive of procedural time.
== END 2021-08-27 19:19 | disposition home or self-care (01) ==
PROVIDERS: Emergency Provider Physician Assistant; PCP Student in an Organized Health Care Education/Training Program
DX: R53.1 Weakness (principal); M25.562 Pain in left knee; S09.90XA Unspecified injury of head, initial encounter; W18.30XA Fall on same level, unspecified, initial encounter
CPT/HCPCS: 71045; 73560; 80053; 81003; 82550; 82962; 83880; 84443; 84484; 85025; 93005; 93010; 99283

== ENCOUNTER 2021-09-28 15:16 | Emergency (ER) | payer MEDICARE, SELFPAY ==
[2021-09-28] VITALS (12 sets, daily range): BP systolic 130–150; BP diastolic 62–94; PULSE 90–102; RESP 12–42; TEMP 36.6; O2SAT 91–96
--- NOTE | 2021-09-28 15:16 | DI.CT.S_ITS ---
PROCEDURE: CT STROKE INDICATIONS: code stroke L sided weakness TECHNIQUE: Noncontrast 4.5 mm thick angled axial sections acquired from the foramen magnum to the vertex, with coronal reformats. For radiation dose reduction, the following was used: automated exposure control, adjustment of mA and/or kV according to patient size. COMPARISON: [facility], CT, CT ANGIO HEAD AND NECK, 09/28/2021, 15:21. FINDINGS: Image quality: Excellent. CSF spaces: Basal cisterns are patent. No extra-axial fluid collections. The ventricles are symmetric in size and shape. Brain: No intracranial bleeds or masses. There is cerebral volume loss for age, with resultant ventricular and sulcal prominence. There are periventricular and deep white matter chronic small vessel ischemic changes. This includes more focal regions of hypoattenuation within the basal ganglia and internal capsule. There is intracranial internal carotid and vertebral artery atherosclerosis. Skull and face: Calvarium and visualized facial bones appear intact, without suspicious lesions. Sinuses: Visualized sinuses and mastoids are clear. IMPRESSION: Findings most consistent with diffuse microvascular ischemic changes along with findings concerning for age indeterminate lacunar infarcts. No acute intracranial hemorrhage or large vessel transcortical infarction. Findings discussed with the ordering provider Dr. Mart Fernandez by Dr. Lukas gonzalez over the telephone at approximately 2:40 p.m. [place] Standard time on 09/28/2021. This study fulfills neurological imaging criteria for inclusion or exclusion of acute stroke therapies based on available published neurological guidelines. Dictated by: Lukas Gonzalez D.O. on 09/28/2021 at 14:36 Approved by: Lukas Gonzalez D.O. on 09/28/2021 at 14:44
--- NOTE | 2021-09-28 15:18 | DI.CT.S_ITS ---
PROCEDURE: CT ANGIO HEAD AND NECK INDICATIONS: code stroke TECHNIQUE: After the administration of intravenous contrast, 1.5 mm axial sections acquired from the aortic arch to the [place]. Maximum intensity projection (MIP) reformats were then performed. COMPARISON: [facility], CT, CT STROKE, 09/28/2021, 15:17. FINDINGS: Image quality: Excellent. Carotid system: The great vessels demonstrate a conventional anatomy as they arise from the aortic arch. The origins of the common carotid arteries appear patent. The common carotid arteries demonstrate normal calibers and courses. There is calcifications throughout the common and internal carotid arteries. This is most prominent at the bifurcations. Less than 50% stenosis of the right proximal internal carotid artery. There is slightly greater than 50% stenosis of the proximal left internal carotid artery. The internal carotid arteries demonstrate normal caliber and course. There is calcifications noted within the proximal intracranial carotid arteries without stenosis measuring greater than 50%. Posterior circulation: The origins of the vertebral arteries appear patent. The more superior portions of the vertebral arteries demonstrate normal course and caliber. They join to form a normal appearing basilar artery. Soft tissues: Visualized neck soft tissues demonstrate no suspicious abnormalities. Thyroid gland is unremarkable.. Bones: Diffuse degenerative changes of the cervical spine worse C5-C6 and C6-C7 where there is near complete intervertebral disc space loss. No significant bony spinal canal stenosis. Multiple levels of mild bony neural foraminal stenosis. No significant listhesis. No suspicious bony lesions. IMPRESSION: Greater than 50% stenosis of the proximal left internal carotid artery. No evidence of occlusion or additional regions of high-grade stenosis. Any quantitative stenosis measurements were performed using the NASCET criteria. Dictated by: Lukas Gonzalez D.O. on 09/28/2021 at 14:47 Approved by: Lukas Gonzalez D.O. on 09/28/2021 at 14:55
[2021-09-28 15:31] LABS: Add Manual Diff / Slide Review NO; Basophils Absolute Auto 100 /uL (0-100); Basophils Percent Auto 1.2 % (0-2); Eosinophils Absolute Auto 200 /uL (0-450); Eosinophils Percent Auto 2.1 % (2-4); Hematocrit 40.5 % (36-46); Lymphocytes Absolute Auto 2200 /uL (1100-4500); Lymphocytes Percent Auto 28.5 % (25-40); Mean Corpuscular HGB Conc 34.6 % (30-36); Mean Corpuscular Hemoglobin 31.1 PG (26-34); Monocytes Absolute Auto 800 /uL (0-900); Monocytes Percent Auto 10.4 % (3-14); Neutrophils Absolute Auto 4500 /uL (1500-7000); Neutrophils Percent Auto 57.8 % (50-75); Platelet Count 282 X10^3/uL (150-400); Red Cell Distribution Width 14.3 % (11.6-14.8); White Blood Cell Count 7.8 X10^3/uL (4.5-11.0)
--- NOTE | 2021-09-28 15:36 | ED_ITS ---
HPI - Neuro Symptoms/Deficit General Chief Complaint: Neuro Symptoms/Deficit Stated Complaint: Code stroke Time Seen by Provider: 09/28/21 15:16 Source: patient, family (Daughter) and EMS Mode of arrival: EMS Limitations: no limitations History of Present Illness HPI Narrative: Patient is a 81-year-old female. Arrived by EMS approximately 30 minutes after the sudden onset of what was described as total left-sided weakness, slurring of her words and left-sided facial droop. Symptoms started approximately 1445 p.m. she was with her when the symptoms started. He immediately contacted EMS. When EMS arrived they did state that she could not move her left side and did have a left-sided facial droop. Her blood sugar was greater than 100. She was brought to the emergency department. In route EMS reports that her symptoms did seem to improve in she was now moving the left side of her body. An IV was started. Upon arrival patient went immediately to CT scanner. Upon returning to the room the patient had no specific complaints. No chest pain. No shortness of breath. No abdominal pain. No headache. Related Data Home Medications Medication Instructions Recorded Confirmed ibuprofen 200 mg capsule 200 mg PO QID PRN 07/06/18 08/19/21 magnesium oxide 400 mg PO BID cap 07/13/18 08/19/21 amlodipine 10 mg tablet 10 mg PO DAILY 01/09/21 08/19/21 furosemide 40 mg tablet 40 mg PO DAILY 05/21/21 08/19/21 aspirin 81 mg tablet,delayed 162 mg PO DAILY tab 08/19/21 08/19/21 release (Adult Aspirin Regimen) isosorbide mononitrate 30 mg 30 mg PO DAILY 08/19/21 08/19/21 tablet,extended release 24 hr metoprolol succinate 200 mg 200 mg PO DAILY 08/19/21 08/19/21 tablet,extended release 24 hr pantoprazole 40 mg tablet,delayed 40 mg PO DAILY 08/19/21 08/19/21 release sacubitril 49 mg-valsartan 51 mg 1 tab PO BID 08/19/21 08/19/21 tablet (Entresto) Previous Rx's Medication Instructions Recorded [accu chek inge strip] #1 ea 05/20/19 cholecalciferol (vitamin D3) 125 125 mcg PO DAILY #90 cap 07/31/21 mcg (5,000 unit) capsule empagliflozin 25 mg tablet 25 mg PO DAILY #90 tab 07/31/21 atorvastatin 80 mg tablet 80 mg PO DAILY #90 tab 08/19/21 clobetasol 0.05 % topical cream 1 applic TOPICAL BID PRN #15 gram 08/19/21 insulin glargine 100 unit/mL (3 20 unit (0.2 mL) SUBCUT BEDTIME #6 08/19/21 mL) subcutaneous pen (Lantus ml Solostar U-100 Insulin) metformin 1,000 mg tablet 1,000 mg PO BIDCC #180 tab 08/19/21 diclofenac sodium 1 % topical gel 2 g TOPICAL QID PRN #100 g 08/28/21 (Voltaren Arthritis Pain) hydrocodone 5 mg-acetaminophen 325 1 tab PO BID PRN #7 tab 08/28/21 mg tablet methocarbamol 500 mg tablet 500 mg PO BEDTIME #12 tab 08/28/21 Allergies Allergy/AdvReac Type Severity Reaction Status Date / Time latanoprost [From XALATAN] Allergy Intermediate made eyes Verified 08/27/21 13:54 itch spironolactone Allergy Mild Vomiting Verified 08/27/21 13:54 hydrochlorothiazide AdvReac Intermediate Hypercalcem Verified 08/27/21 13:54 ia timolol [TIMOLOL] AdvReac Mild REDNESS Verified 08/27/21 13:54 AROUND EYES Review of Systems Review of Systems ROS Unobtainable: All systems reviewed & are unremarkable except as noted in HPI and below Patient History Medical History CAD (coronary artery disease) (06/2012) Cataract Diabetes type 2, controlled (03/19/11) Essential hypertension (03/19/11) Glaucoma Hyperlipidemia associated with type 2 diabetes mellitus MS (myocardial infarction) Mitral regurgitation Peripheral vascular disease Psoriasis Shingles (09/2008) Surgical History History of mitral valve repair (06/2012) Status post coronary artery bypass graft (06/2012) Status post hysterectomy (1992) Family History Other Heart disease Social History Smoking Status: Former smoker alcohol intake: current (Occasional) substance use type: does not use Smoking Status: Former smoker alcohol intake frequency: 0-2 drinks per day Substance Use Type: does not use Exam Initial Vital Signs Initial Vital Signs: Vital Signs Pulse Rate 102 H 09/28/21 15:38 Respiratory Rate 12 09/28/21 15:38 Pulse Oximetry 91 09/28/21 15:38 Const General: cooperative, healthy appearing, comfortable and well groomed HENMT Head: normal to inspection and normocephalic Nose: external nose normal Mouth: moist mucous membranes Eyes Pupils: PERRL and pupil size bilaterally 4 EOM: EOM intact bilaterally Chest Chest: No crepitus Resp Effort & Inspection: normal respiratory effort Auscultation: clear to auscultation bilaterally Cardio Rate: regular rate Rhythm: abnormal rhythm GI Inspection: normal to inspection and non-distended Palpation: soft and No tender Skin General: no rashes or lesions noted Neuro Other: Patient was alert and oriented to person and place. She was able to say what month it was. She was able to say her date. Patient not slurring her words. She did have a difficult time looking to her left seem to have vision difficulties to the left. Patient's daughter arrived at bedside and stated that she thought that the left side of her face was drooping compared to the right. She was able to follow commands. She did move all 4 extremities to command. She reports no sensory deficits to her face nor upper lower extremities to light touch. Extrem General: normal to inspection, capillary refill normal, no pedal edema and No cyanosis Psych Appearance: grossly normal and well kempt Scores GCS Laquey coma scale eye opening: Spontaneous Ana Lilia coma scale verbal response: Orientated Ana Lilia coma scale motor response: Obey commands Laquey coma scale total score: 15 NIH Stroke Scale Level of Conciousness: Alert, keenly responsive Ask month/age: Answers both questions correctly. Open/close eyes, close hand: Performs both tasks correctly Best gaze horizontal: Partial gaze palsy, can be overcome by finger tracking, head turning Visual benedict: Complete hemianopia (Left visual field) Facial palsy: Minor paralysis, flattened nasolabial fold, asymmetry on smiling Left arm drift: No drift for full 10 sec Right arm drift: No drift for full 10 sec Left leg drift: No drift for full 5 sec Right leg drift: No drift for full 5 sec Limb ataxia: Absent Sensory on face/arms/legs: Normal, no sensory loss Best language: No aphasia, normal Dysarthria: Normal Extinction or inattention: No abnormality Total NIH Stroke scale score: 4 Course Orders Ordered: ED Orders 09/28/21 15:10 Complete Blood Count AUTO DIFF Stat Comprehensive Metabolic Panel Stat Ethanol (ETOH) Stat Lactate (Lactic Acid) Stat Lipase Stat Magnesium Stat Partial Thromboplastin Time Stat Prothrombin Time INR Stat Troponin & CK Cardiac Panel Stat 09/28/21 15:16 CT Stroke Stat 09/28/21 15:18 CT angio head and neck Stat EKG-12 Lead Stat 09/28/21 15:35 COVID19 -Nasal RAPID/Pre-Proc Stat Sodium Chloride (Normal Saline 0.9%) 1,000 mls @ 125 mls/hr IV CONT JEFF Discontinued Medications Alteplase, Recombinant (Alteplase 100 Mg/100 Ml Vial) 90 mg IV NOW ONE Stop: 09/28/21 16:31 Last Admin: 09/28/21 16:07 Dose: 90 mg Documented by: LIAM Vital Signs Vital signs: Vital Signs - 8 hr 09/28/21 15:38 09/28/21 15:39 09/28/21 16:00 Temperature 97.8 F Pulse Rate 102 H 98 H 97 H Respiratory Rate 12 24 26 H Blood Pressure 143/79 H 135/94 H Pulse Oximetry 91 91 92 09/28/21 16:10 09/28/21 16:21 09/28/21 16:30 Temperature Pulse Rate 95 H 98 H 91 H Respiratory Rate 23 42 H 24 Blood Pressure 138/62 138/69 150/64 H Pulse Oximetry 91 91 92 09/28/21 16:41 09/28/21 16:50 09/28/21 17:00 Temperature Pulse Rate 98 H 96 H 97 H Respiratory Rate 28 H 22 28 H Blood Pressure 132/73 145/66 H Pulse Oximetry 95 94 96 09/28/21 17:01 Temperature Pulse Rate 98 H Respiratory Rate 22 Blood Pressure 135/92 H Pulse Oximetry 95 MDM - Neuro Symptoms/Deficit Medical Records Attestation: I reviewed the patient's medical records. Lab Data Attestation: I reviewed the patient's lab results. Result diagrams: 09/28/21 15:10 09/28/21 15:10 Labs: Lab Results 09/28/21 09/28/21 09/28/21 Range/Units 15:10 15:10 15:10 WBC 7.8 (4.5-11.0) X10^3/uL RBC 4.50 (4.0-5.2) X10^6/uL Hgb 14.0 (12.0-16.0) g/dL Hct 40.5 (36-46) % MCV 90.0 (80-100) fL MCH 31.1 (26-34) PG MCHC 34.6 (30-36) % RDW 14.3 (11.6-14.8) % Plt Count 282 (150-400) X10^3/uL Neut % (Auto) 57.8 (50-75) % Lymph % (Auto) 28.5 (25-40) % Nicol[place] % (Auto) 10.4 (3-14) % Eos % (Auto) 2.1 (2-4) % Baso % (Auto) 1.2 (0-2) % Neut # (Auto) 4500 (6977-6628) /uL Lymph # (Auto) 2200 (0278-1026) /uL Nicol[place] # (Auto) 800 (0-900) /uL Eos # (Auto) 200 (0-450) /uL Baso # (Auto) 100 (0-100) /uL PT 10.8 (10.1-12.7) SECONDS INR 1.0 (0.9-1.3) APTT 32 (26.4-36.2) SECONDS Sodium 137 (137-145) mmol/L Potassium 4.0 (3.4-5.1) mmol/L Chloride 101 (98-107) mmol/L Carbon Dioxide 24 (22-32) mmol/L BUN 24 H (7-17) mg/dL Creatinine 0.80 (0.52-1.04) mg/dL Estimated GFR > 60 (>60) mL/min BUN/Creatinine Ratio 30.0 H (6-22) Glucose 130 H (80-110) mg/dL Lactate (0.7-2.1) mmol/L Calcium 9.6 (8.4-10.2) mg/dL Magnesium 1.8 (1.6-2.3) mg/dL Total Bilirubin 0.8 (0.2-1.3) mg/dL AST 20 (14-36) IU/L ALT 16 (<35) IU/L Alkaline Phosphatase 86 (38-126) U/L Total Creatine Kinase 28 L (30-135) U/L CK-MB (CK-2) TNP CK-MB (CK-2) Rel Index TNP Troponin I < 0.012 (0.01-0.034) ng/mL Total Protein 7.2 (6.3-8.2) g/dL Albumin 4.1 (3.5-5.0) g/dL Globulin 3.1 (1.7-4.1) g/dL Albumin/Globulin Ratio 1.3 (1.0-2.8) Lipase 46 (23-300) U/L Ethyl Alcohol < 10 ( - 10) mg/dL SARS-CoV-2 (PCR) (Negative) 09/28/21 09/28/21 Range/Units 15:10 15:35 WBC (4.5-11.0) X10^3/uL RBC (4.0-5.2) X10^6/uL Hgb (12.0-16.0) g/dL Hct (36-46) % MCV (80-100) fL MCH (26-34) PG MCHC (30-36) % RDW (11.6-14.8) % Plt Count (150-400) X10^3/uL Neut % (Auto) (50-75) % Lymph % (Auto) (25-40) % Nicollet % (Auto) (3-14) % Eos % (Auto) (2-4) % Baso % (Auto) (0-2) % Neut # (Auto) (9574-6882) /uL Lymph # (Auto) (0255-0507) /uL Nicollet # (Auto) (0-900) /uL Eos # (Auto) (0-450) /uL Baso # (Auto) (0-100) /uL PT (10.1-12.7) SECONDS INR (0.9-1.3) APTT (26.4-36.2) SECONDS Sodium (137-145) mmol/L Potassium (3.4-5.1) mmol/L Chloride (98-107) mmol/L Carbon Dioxide (22-32) mmol/L BUN (7-17) mg/dL Creatinine (0.52-1.04) mg/dL Estimated GFR (>60) mL/min BUN/Creatinine Ratio (6-22) Glucose (80-110) mg/dL Lactate 1.9 (0.7-2.1) mmol/L Calcium (8.4-10.2) mg/dL Magnesium (1.6-2.3) mg/dL Total Bilirubin (0.2-1.3) mg/dL AST (14-36) IU/L ALT (<35) IU/L Alkaline Phosphatase (38-126) U/L Total Creatine Kinase (30-135) U/L CK-MB (CK-2) CK-MB (CK-2) Rel Index Troponin I (0.01-0.034) ng/mL Total Protein (6.3-8.2) g/dL Albumin (3.5-5.0) g/dL Globulin (1.7-4.1) g/dL Albumin/Globulin Ratio (1.0-2.8) Lipase (23-300) U/L Ethyl Alcohol ( - 10) mg/dL SARS-CoV-2 (PCR) Negative (Negative) Imaging Data CT scan - head: Radiologist's Impression: Launch?Image [address] [address] [address] Scan Report Signed Patient: Faina Pearce MR#: [id number] : 1940 Acct:[id number] Age/Sex: 81 / F Date of Service: 09/28/21 Loc: ED Accession Number: [id number] ?? Procedure: CT Stroke Ordering Provider: Mart Fernandez D.O. PROCEDURE:? CT STROKE ? INDICATIONS:? code stroke L sided weakness ? TECHNIQUE:? Noncontrast 4.5 mm thick angled axial sections acquired from the foramen magnum to the vertex, with coronal reformats.? For radiation dose reduction, the following was used:? automated exposure control, adjustment of mA and/or kV according to patient size.? ? COMPARISON:? [facility], CT, CT ANGIO HEAD AND NECK, 09/28/2021, 15:21. ? FINDINGS:? Image quality:? Excellent.? ? CSF spaces:? Basal cisterns are patent.? No extra-axial fluid collections.? The ventricles are symmetric in size and shape.? ? Brain:? No intracranial bleeds or masses.? There is cerebral volume loss for age, with resultant ventricular and sulcal prominence.? There are periventricular and deep white matter chronic small vessel ischemic changes.? This includes more focal regions of hypoattenuation within the basal ganglia and internal capsule.? There is intracranial internal carotid and vertebral artery atherosclerosis.? ? Skull and face:? Calvarium and visualized facial bones appear intact, without suspicious lesions.? ? Sinuses:? Visualized sinuses and mastoids are clear.? ? IMPRESSION:? ? Findings most consistent with diffuse microvascular ischemic changes along with findings concerning for age indeterminate lacunar infarcts.? No acute intracranial hemorrhage or large vessel transcortical infarction. ? ? Findings discussed with the ordering provider Dr. Mart Fernandez by Dr. Lukas gonzalez over the telephone at approximately 2:40 p.m. [place] Standard time on 09/28/2021. ? ? This study fulfills neurological imaging criteria for inclusion or exclusion of acute stroke therapies based on available published neurological guidelines.? ? ? Dictated by: Lukas Gonzalez D.O. on 09/28/2021 at 14:36 ? ? Approved by: Lukas Gonzalez D.O. on 09/28/2021 at 14:44 CTA - brain/neck: Radiologist's Impression: [place] [address] CT Scan Report Signed Patient: Faina Pearce MR#: [id number] : 1940 Acct:[id number] Age/Sex: 81 / F Date of Service: 09/28/21 Loc: ED Accession Number: [id number] ?? Procedure: CT angio head and neck Ordering Provider: Mart Fernandez D.O. PROCEDURE:? CT ANGIO HEAD AND NECK ? INDICATIONS:? code stroke ? TECHNIQUE:? After the administration of intravenous contrast, 1.5 mm axial sections acquired from the aortic arch to the [place].? Maximum intensity projection (MIP) reformats were then performed.? ? COMPARISON:? [facility], CT, CT STROKE, 09/28/2021, 15:17. ? FINDINGS:? Image quality:? Excellent.? ? Carotid system:? The great vessels demonstrate a conventional anatomy as they ar ise from the aortic arch.? The origins of the common carotid arteries appear patent.? The common carotid arteries demonstrate normal calibers and courses.? There is calcifications throughout the common and internal carotid arteries.? This is most prominent at the bifurcations.? Less than 50% stenosis of the right proximal internal carotid artery.? There is slightly greater than 50% stenosis of the proximal left internal carotid artery. ?The internal carotid arteries demonstrate normal caliber and course.? There is calcifications noted within the proximal intracranial carotid arteries without s tenosis measuring greater than 50%. ? Posterior circulation:? The origins of the vertebral arteries appear patent.? The more superior portions of the vertebral arteries demonstrate normal course and c aliber.? They join to form a normal appearing basilar artery.? ? Soft tissues:? Visualized neck soft tissues demonstrate no suspicious abnormalities.? Thyroid gland is unremarkable..? ? Bones:? Diffuse degenerative changes of the cervical spine worse C5-C6 and C6-C7 where there is near complete intervertebral disc space loss.? No significant bony spinal canal stenosis.? Multiple levels of mild bony neural foraminal stenosis.? No significant listhesis.? No suspicious bony lesions.? ? IMPRESSION:? Greater than 50% stenosis of the proximal left internal carotid artery.? No evidence of occlusion or additional regions of high-grade stenosis. ? ? Any quantitative stenosis measurements were performed using the NASCET criteria.? ? ? Dictated by: Lukas Gonzalez D.O. on 09/28/2021 at 14:47 ? ? Approved by: Lukas Gonzalez D.O. on 09/28/2021 at 14:55?? ECG Data Attestation: I personally reviewed and interpreted this ECG as follows: Interpretation: Atrial fibrillation/atrial flutter Ventricular rate 90 Normal axis Normal QRS Nonspecific ST T wave changes MDM Narrative Medical decision making narrative: Patient did arrive within the window for tPA. Her head CT was unremarkable. The CTA of her head neck showed no large vessel occlusion. Patient not on anticoagulation. She was in atrial flutter on her EKG. Daughter states that she has had irregular heart rhythms in the past but there is no definitive diagnosis of AFib. No recent surgeries. No history of head bleeds. No history of GI bleeds. Does appear that her symptoms have been improving as she is now able to move her left side. Per EMS report she was unable to do this upon their arrival to her house. She is not hypoglycemic. She is not hypertensive. She has obvious difficulties with looking to the left and has a left-sided vision field deficit. Daughter reports the left side of her mouth is drooping. NIH score 4. I did discuss the case with Dr. Anthony with Stroke Neurology at [facility]. He evaluated the patient in the emergency department through the video. Despite her NIH score 4 and improvement of her symptoms her visual field deficit is an are pin you in going to result in a very devastating neurologic deficit. We had discussion about tPA. We did discuss the risks of tPA with both the patient and daughter at bedside. Understand these risks. They understand the reason for administration of this medication. Everyone was in agreement that this be the best course for her. She is 100 kg. She was given a bolus started at 1606. This ended at 1607. The drip was started at 1609. Patient has been evaluated. Minimal improvement of symptoms. Will transfer the patient to [facility] by air for continued evaluation and treatment. Critical Care Time Critical Care Time Critical Care Time: Yes Total Critical Care Time: 45 Attestation: The high probability of a clinically significant, sudden or life threatening deterioration of the neurologic system(s) required my full and direct attention, intervention and personal management. The aggregate critical care time was [45] minutes. This time is in addition to time spent performing reported procedures but includes the following: [x] Data Review and interpretation [x] Patient assessment and monitoring of vital signs [x] Documentation [x] Medication orders and management Discharge Plan Departure Patient Disposition: [facility] Clinical Impression: Acute cerebrovascular accident (CVA) Prescriptions: No Action magnesium oxide 400 mg capsule 400 mg PO BID 0RF amlodipine 10 mg tablet 10 mg PO DAILY 0RF furosemide 40 mg tablet 40 mg PO DAILY 0RF empagliflozin 25 mg tablet 25 mg PO DAILY Qty: 90 0RF cholecalciferol (vitamin D3) 125 mcg (5,000 unit) capsule 125 mcg PO DAILY Qty: 90 0RF (DME) [accu chek inge strip] See Rx Instructions .Route .MEDSUPPLY Qty: 1 5RF Dose Instruction: Check blood sugar DAILY; Rx Instructions: Check blood sugar DAILY; metoprolol succinate 200 mg tablet extended release 24 hr 200 mg PO DAILY 0RF Entresto 49-51 mg tablet 1 tab PO BID 0RF isosorbide mononitrate 30 mg tablet extended release 24 hr 30 mg PO DAILY 0RF pantoprazole 40 mg tablet,delayed release (DR/EC) 40 mg PO DAILY 0RF atorvastatin 80 mg tablet 80 mg PO DAILY Qty: 90 3RF clobetasol 0.05 % cream 1 applic Topical BID PRN (Reason: rash on ears) Qty: 15 5RF metformin 1,000 mg tablet 1,000 mg PO BIDCC Qty: 180 1RF Lantus Solostar U-100 Insulin 100 unit/mL (3 mL) insulin pen 20 unit SUBCUT BEDTIME Qty: 6 5RF ibuprofen 200 mg capsule 200 mg PO QID PRN0RF aspirin [Adult Aspirin Regimen] 81 mg tablet,delayed release (DR/EC) 162 mg PO DAILY 0RF methocarbamol 500 mg tablet 500 mg PO BEDTIME Qty: 12 0RF diclofenac sodium [Voltaren Arthritis Pain] 1 % gel 2 g topical QID PRN (Reason: pain) Qty: 100 0RF Rx Instructions: apply to single elbow, wrist or hand; for hand includes palm/fingers/back of hand hydrocodone-acetaminophen 5-325 mg tablet 1 tab PO BID PRN (Reason: pain) Qty: 7 0RF Referrals: Jeff Jernigan MD [Primary Care Provider] -
[2021-09-28 15:41] LABS: Prothrombin Time 10.8 SECONDS (10.1-12.7)
[2021-09-28 15:43] LABS: PTT Partial Thromboplastin Tim 32 SECONDS (26.4-36.2)
[2021-09-28 15:44] LABS: Lactate (Lactic Acid) 1.9 mmol/L (0.7-2.1)
[2021-09-28 15:46] LABS: Alanine Aminotransferase 16 IU/L (<35); Albumin 4.1 g/dL (3.5-5.0); Albumin Globulin Ratio 1.3 (1.0-2.8); Alkaline Phosphatase 86 U/L (38-126); Aspartate Aminotransferase 20 IU/L (14-36); Bilirubin Total 0.8 mg/dL (0.2-1.3); Blood Urea Nitrogen 24 mg/dL (7-17); Calcium 9.6 mg/dL (8.4-10.2); Carbon Dioxide 24 mmol/L (22-32); Chloride 101 mmol/L (98-107); Creatine Kinase 28 U/L (30-135); Estimated Glomerular Filt Rate > 60 mL/min (>60); Ethanol (ETOH) < 10 mg/dL; Globulin 3.1 g/dL (1.7-4.1); Glucose 130 mg/dL (80-110); HEMOLYSIS < 15 (0-50); Lipase 46 U/L (23-300); Magnesium 1.8 mg/dL (1.6-2.3); Sodium 137 mmol/L (137-145); Total Protein 7.2 g/dL (6.3-8.2)
[2021-09-28 15:56] LABS: Troponin I < 0.012 ng/mL (0.01-0.034)
[2021-09-28] MEDS: ALTEPLASE 100 MG/100 ML VIAL 90 MG IV (16:07)
[2021-09-28 16:19] LABS: COVID19 -Nasal RAPID Negative (Negative)
--- NOTE | 2021-09-28 17:51 | PC.NURSE ---
Pt completed TPA at 1711, airnnamdi arrived, report given to Joi LAU with [facility].
== END 2021-09-28 17:35 | disposition short-term general hospital (02) ==
PROVIDERS: Emergency Provider Emergency Medicine; PCP Student in an Organized Health Care Education/Training Program
DX: I63.9 Cerebral infarction, unspecified (principal); R29.810 Facial weakness; G81.94 Hemiplegia, unspecified affecting left nondominant side; Z92.82 Status post administration of tPA (rtPA) in a different facility within the last 24 hours prior to admission to current facility
CPT/HCPCS: 36415; 70450; 70496; 70498; 80053; 80320; 82550; 82962; 83605; 83690; 83735; 84484; 85025; 85610; 85730; 87635; 93005; 93010; 96374; 99285; 99291; 99292; C9803; J2997; Q9967